=== PATIENT | male | born 1980 | race Caucasian/White ===

== ENCOUNTER 2022-04-10 15:49 | Emergency (ER) | payer OTHER ==
[2022-04-10 16:17] VITALS: BP 150/89; PULSE 86; RESP 16; TEMP 98.1
[2022-04-10] MEDS ORDERED: HYDROmorphone 1 MG/ML 1 ML SYRINGE IM STA (16:27)
[2022-04-10] MEDS ORDERED: ORPHENADRINE 30 MG/ML 2 ML VIAL IM STA (16:27)
--- NOTE | 2022-04-10 17:10 | XR ---
EXAMINATION TYPE: XR lumbar spine 2 or 3V DATE OF EXAM: 04/10/2022 COMPARISON: NONE HISTORY: Back pain TECHNIQUE: 3 views FINDINGS: The lumbar vertebrae have normal alignment. Posterior elements are intact. Sacroiliac joint s are intact. IMPRESSION: Normal lumbar spine exam. No fracture.
[2022-04-10] MEDS ORDERED: DEXAMETHASONE SOD PHOSPHATE 10 MG/ML 1 ML VIAL IM STA (17:14)
[2022-04-10 18:32] LABS: Amorphous Sediment,Urine Few /hpf; Appearance,Urine Turbid (Clear); Bilirubin,Urine Negative (Negative); Blood,Urine Negative (Negative); Color,Urine Light Yellow; Glucose,Urine (UA) Negative (Negative); Hyaline Casts,Urine 3 /lpf (0-2); Ketones,Urine Negative (Negative); Leukocyte Esterase,Urine Negative (Negative); Nitrite,Urine Negative (Negative); PH, Urine 7.5 (5.0-8.0); Protein,Urine Negative (Negative); Specific Gravity,Urine 1.016 (1.001-1.035); Urobilinogen,Urine <2.0 mg/dL (<2.0)
[2022-04-10] MEDS ORDERED: traMADol 50 MG STARTER PACK 3 TAB BTL PO STA (18:43)
--- NOTE | 2022-04-10 18:46 | ED ---
Back Pain HPI - General Chief Complaint: Back Pain/Injury Stated Complaint: Back Pain, Sent from Urgent care Time Seen by Provider: 04/10/22 16:18 Source: patient Limitations: no limitations - History of Present Illness Initial Comments: Patient is a 41-year-old male presenting with chief complaint of lower back pain. Patient has chronic back pain, however over the last week his pain has been worse than usual. He denies any injury or trauma. He admits to pain radiating down the bilateral legs. Patient denies any saddle paresthesia. No loss of bladder/bowel control. No dysuria, hematuria, urgency, frequency. No fever or chills. No chest pain or shortness of breath. Patient is able to ambulate, however it is painful. - Related Data Home Medications Medication Instructions Recorded Confirmed Albuterol Inhaler [Ventolin Hfa 2 puff INHALATION RT-Q6H PRN 06/10/16 06/10/16 Inhaler] Cyclobenzaprine [Flexeril] 10 mg PO BID PRN 06/10/16 06/10/16 HYDROcodone/APAP 5-325MG [[place] 1 tab PO BID 06/10/16 06/11/16 5-325] Multivitamin [Men's Multi-Vitamin] 1 tab PO DAILY 06/10/16 06/10/16 clonazePAM [KlonoPIN] 1 mg PO BID PRN 06/11/16 06/11/16 lamoTRIgine [LaMICtal Xr] 200 mg PO DAILY 06/11/16 06/11/16 Previous Rx's Medication Instructions Recorded Nicotine 21Mg/24Hr Patch [Habitrol] 1 patch TRANSDERM DAILY #30 patch 06/13/16 lamoTRIgine [LaMICtal] 50 mg PO HS #60 tab 06/13/16 Cyclobenzaprine [Flexeril] 10 mg PO TID PRN #20 tab 04/10/22 Allergies Allergy/AdvReac Type Severity Reaction Status Date / Time No Known Allergies Allergy Verified 04/10/22 16:17 Review of Systems ROS Statement: Those systems with pertinent positive or pertinent negative responses have been documented in the HPI. ROS Other: All systems not noted in ROS Statement are negative. Past Medical History Past Medical History: Asthma, Hypertension Additional Past Medical History / Comment(s): chronic back, neck and shoulder pa in History of Any Multi-Drug Resistant Organisms: None Reported Additional Past Surgical History / Comment(s): Left carpal tunnel release Past Anesthesia/Blood Transfusion Reactions: No Reported Reaction Past Psychological History: Anxiety, Depression Smoking Status: Current every day smoker Past Alcohol Use History: Rare Past Drug Use History: Marijuana, Prescription Drug Abuse - Past Family History Mother History Unknown: Yes Additional Family Medical History / Comment(s): Mother at age 60 from a motor vehicle accident with no major medical problems. Father History Unknown: Yes Additional Family Medical History / Comment(s): Father at age 62 from a motor vehicle accident with history of hypertension, hyperlipidemia and mental health issues. Sister(s) Additional Family Medical History / Comment(s): Patient has 3 half-sisters with no major medical problems. Patient does not have any brothers. Daughter(s) Additional Family Medical History / Comment(s): Patient has a 13-year-old daughter with no major medical problems. Son(s) Additional Family Medical History / Comment(s): Patient has one 18-year-old son with no major medical problems. General Exam Limitations: no limitations General appearance: alert, in no apparent distress Head exam: Present: atraumatic, normocephalic, normal inspection Eye exam: Present: normal appearance, EOMI. Absent: scleral icterus, periorbital swelling Neck exam: Present: normal inspection Rectal exam: Present: normal inspection, normal rectal tone Back exam: Present: normal inspection, paraspinal tenderness. Absent: vertebral tenderness Neurological exam: Present: alert, oriented X3, CN II-XII intact Psychiatric exam: Present: normal affect, normal mood Skin exam: Present: warm, dry, intact, normal color. Absent: rash Course Vital Signs 04/10/22 16:15 Temperature 98.1 F Pulse Rate 86 Respiratory 16 Rate Blood Pressure 150/89 O2 Sat by Pulse 98 Oximetry Medical Decision Making - Medical Decision Making Patient is a 41-year-old male presenting with chief complaint of lower back pain. This is acute on chronic pain for the patient, no recent injury or trauma. On examination there is paraspinal muscle tenderness, no vertebral body tenderness. Normal rectal tone. Patient is able to ambulate, however he is a lot of pain. Patient is given pain medication, lumbar spine x-ray shows no acute process. Urine is unremarkable. On reassessment patient reports improvement in his symptoms. He is discharged with pain medication and given follow-up for orthopedic spine. Follow-up with PCP and orthopedics. Report back to ER with any new or worsening symptoms. Discussed return parameters and answered all questions. Patient conveyed verbal understanding and agreed to the plan. I discussed this case in detail with my attending Dr. Hummel - Lab Data Lab Results 04/10/22 Range/Units 18:10 Urine Color Light Yellow Urine Appearance Turbid (Clear) Urine pH 7.5 (5.0-8.0) Ur Specific [place] 1.016 (1.001-1.035) Urine Protein Negative (Negative) Urine Glucose (UA) Negative (Negative) Urine Ketones Negative (Negative) Urine Blood Negative (Negative) Urine Nitrite Negative (Negative) Urine Bilirubin Negative (Negative) Urine Urobilinogen <2.0 (<2.0) mg/dL Ur Leukocyte Esterase Negative (Negative) Amorphous Sediment Few H (None) /hpf Hyaline Casts 3 H (0-2) /lpf Disposition Clinical Impression: Mechanical back pain Disposition: HOME SELF-CARE Condition: Good Instructions (If sedation given, give patient instructions): Acute Low Back Pain (ED), Lower Back Exercises (ED) Additional Instructions: Follow-up with PCP and orthopedics. Report back to ER with any new or worsening symptoms. Take medication as prescribed. Prescriptions: Cyclobenzaprine [Flexeril] 10 mg PO TID PRN #20 tab PRN Reason: Spasms Is patient prescribed a controlled substance at d/c from ED?: No Referrals: Nadir Chong MD [Primary Care Provider] - 1-2 days Anmol Martinez DO [Doctor of Osteopathic Medicine] - 1-2 days Time of Disposition: 18:46
== END 2022-04-10 18:53 | disposition home or self-care (01) ==
LOC: EC 15:49
DX: M54.50 Low back pain, unspecified (principal); G89.29 Other chronic pain; J45.909 Unspecified asthma, uncomplicated; I10 Essential (primary) hypertension; F17.200 Nicotine dependence, unspecified, uncomplicated; Z79.899 Other long term (current) drug therapy; Z79.51 Long term (current) use of inhaled steroids
CPT/HCPCS: 96372; 99283; 51798; 81001; 72100; J1100; J2360; J1170

== ENCOUNTER 2022-12-31 08:09 | Emergency (ER) | payer OTHER ==
[2022-12-31 08:19] VITALS: TEMP 98
[2022-12-31] MEDS ORDERED: DIPH,PERTUS(ACELL)TETVAC-LF 0.5 ML VIAL IM ONE (08:26)
[2022-12-31] MEDS ORDERED: LIDOCAINE 1% INJ 10MG/ML (30 ML VIAL-PF) SQ ONE (08:26)
[2022-12-31] MEDS ORDERED: BACITRACIN OINT 1 EACH PACKET TOPICAL ONE (08:26)
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
[2022-12-31 10:03] VITALS: BP 134/75; PULSE 79; RESP 16
== END 2022-12-31 10:03 | disposition home or self-care (01) ==
LOC: EC 08:09
DX: S91.311A Laceration without foreign body, right foot, initial encounter (principal); J45.909 Unspecified asthma, uncomplicated; I10 Essential (primary) hypertension; F41.9 Anxiety disorder, unspecified; F32.A Depression, unspecified; F17.200 Nicotine dependence, unspecified, uncomplicated; F12.90 Cannabis use, unspecified, uncomplicated; Z79.899 Other long term (current) drug therapy; Z23 Encounter for immunization; W22.8XXA Striking against or struck by other objects, initial encounter; Y93.55 Activity, bike riding
CPT/HCPCS: 73610; 90715; 99283; 90471; 12002; J2001

== ENCOUNTER 2023-01-06 10:11 | Emergency (ER) | payer OTHER ==
[2023-01-06] MEDS ORDERED: SODIUM CHLORIDE 0.9% 1,000 ML IV STA (10:51)
[2023-01-06] MEDS ORDERED: KETOROLAC 15 MG/ML 1 ML VIAL IVP STA (10:52)
[2023-01-06] MEDS ORDERED: ONDANSETRON 4 MG/2 ML VIAL IVP STA (10:52)
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
--- NOTE | 2023-01-06 11:38 | XR ---
EXAMINATION TYPE: XR foot complete RT DATE OF EXAM: 01/06/2023 CLINICAL HISTORY: pain TECHNIQUE: Frontal, lateral and oblique images of the right foot are obtained. COMPARISON: None. FINDINGS: There is no acute fracture/dislocation evident. The joint spaces appear within normal castillo its. The overlying soft tissue appears unremarkable. IMPRESSION: There is no acute fracture or dislocation. ICD 10 NO FRACTURE, INITIAL EVALUATION
--- NOTE | 2023-01-06 11:39 | XR ---
EXAMINATION TYPE: XR ankle complete RT DATE OF EXAM: 01/06/2023 COMPARISON: 12/31/2022 HISTORY: Pain TECHNIQUE: Frontal, lateral and oblique images of the right ankle are obtained. COMPARISON: None. FINDINGS: There is no acute fracture/dislocation evident. Well-corticated ossific densities compatib le with previous avulsion fractures. The joint spaces appear within normal limits. The overlying so ft tissue appears unremarkable. IMPRESSION: There is no acute fracture or dislocation seen.
[2023-01-06 11:40] LABS: Basophils % (A) 0 %; Eosinophils # (A) 0.4 k/uL (0-0.7); Eosinophils % (A) 5 %; HCT 45.6 % (39.0-53.0); HGB 15.2 gm/dL (13.0-17.5); Lymphocytes % (A) 27 %; MCH 30.9 pg (25.0-35.0); MCHC 33.3 g/dL (31.0-37.0); MCV 92.9 fL (80.0-100.0); Mean Platelet Volume 7.2; Monocytes # (A) 0.4 k/uL (0-1.0); Monocytes % (A) 5 %; Neutrophils # (A) 4.5 k/uL (1.3-7.7); Neutrophils % (A) 60 %; Platelet Count 293 k/uL (150-450); RBC 4.91 m/uL (4.30-5.90); RDW 12.3 % (11.5-15.5); WBC 7.5 k/uL (3.8-10.6)
[2023-01-06 11:55] LABS: ALT 51 U/L (4-49); AST 36 U/L (17-59); African American GFR (CKD) >90 (>60 ml/min/1.73 sqM); Albumin 4.1 g/dL (3.5-5.0); Alkaline Phosphatase 91 U/L (38-126); Anion Gap 7 mmol/L; Blood Urea Nitrogen 17 mg/dL (9-20); C Reactive Protein 6.1 mg/dL (<1.0); Calcium 9.3 mg/dL (8.4-10.2); Carbon Dioxide 26 mmol/L (22-30); Chloride 106 mmol/L (98-107); Glucose 95 mg/dL (74-99); Non-African American GFR(CKD) >90 (>60 ml/min/1.73 sqM); Potassium 4.6 mmol/L (3.5-5.1); Sodium 139 mmol/L (137-145); Total Bilirubin 0.3 mg/dL (0.2-1.3); Total Protein 6.9 g/dL (6.3-8.2)
[2023-01-06] MEDS ORDERED: ACET/COD 300 MG/30 MG STARTER PACK 6 TAB BTL PO STA (12:25)
[2023-01-06 12:38] VITALS: BP 143/80; PULSE 65; RESP 14; TEMP 98.2
== END 2023-01-06 12:40 | disposition home or self-care (01) ==
LOC: EC 10:11
DX: L03.115 Cellulitis of right lower limb (principal); I10 Essential (primary) hypertension; J45.909 Unspecified asthma, uncomplicated; F17.200 Nicotine dependence, unspecified, uncomplicated; F12.90 Cannabis use, unspecified, uncomplicated; F15.90 Other stimulant use, unspecified, uncomplicated; Z79.899 Other long term (current) drug therapy
CPT/HCPCS: 36415; 80053; 83605; 85025; 86140; 73610; 73630; 99284; 96374; 96375; 96361; J2405; J1885

== ENCOUNTER 2025-02-24 15:11 | Emergency (ER) | payer MEDICARE, OTHER ==
[2025-02-24 15:15] VITALS: RESP 18
[2025-02-24] MEDS: LIDOCAINE 1% INJ 10MG/ML (20 ML MDV) SQ ONE (15:36)
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
[2025-02-24 17:05] VITALS: BP 144/86; PULSE 82; TEMP 97.8
== END 2025-02-24 17:05 | disposition home or self-care (01) ==
LOC: EC 15:11
DX: S61.217A Laceration without foreign body of left little finger without damage to nail, initial encounter (principal); F17.200 Nicotine dependence, unspecified, uncomplicated; W26.0XXA Contact with knife, initial encounter
CPT/HCPCS: 99282; 12002; J2003